=== PATIENT | male | born 1945 | race Caucasian/White ===

== ENCOUNTER → 2022-07-08 | Outpatient (REF) | payer MEDICARE | LOC: M LAB REF 13:31 | PROVIDERS: ATTEND Internal Medicine | DX: Z13.89 Encounter for screening for other disorder (principal) ==

== ENCOUNTER → 2022-12-01 | Outpatient (CLI) | payer MEDICARE | LOC: M WUC 09:34 | PROVIDERS: ATTEND Nurse Practitioner Family | DX: R05.8 Other specified cough (principal) ==

== ENCOUNTER → 2023-04-09 | Day surgery (SDC) | payer MEDICARE ==
[~2023-04-09] VITALS: Ht 170.2 cm; Wt 68.5 kg
[~2023-04-09] MED LIST: ATOR1TAB21 PO; COMPTAB7 PO; LEVO75TA4 PO; LIDOCAINE 2% 100MG/5ML SDV (FOR ANES.) As Ordered ONE; NS 1,000 ML IV ONE; OMEG10002 PO; propofoL 200 MG/20 ML VIAL As Ordered ONE
[2023-04-09 12:47] VITALS: TEMP 97.4
[2023-04-09 13:15] VITALS: BP 110/56; O2SAT 98
== END | disposition home or self-care (01) ==
LOC: M OPP 11:32
PROVIDERS: ATTEND Internal Medicine Gastroenterology
DX: K64.8 Other hemorrhoids (principal); K63.5 Polyp of colon; K21.9 Gastro-esophageal reflux disease without esophagitis; K44.9 Diaphragmatic hernia without obstruction or gangrene; K29.70 Gastritis, unspecified, without bleeding; K31.A0 Gastric intestinal metaplasia, unspecified; Z79.02 Long term (current) use of antithrombotics/antiplatelets; Z79.890 Hormone replacement therapy; Z79.891 Long term (current) use of opiate analgesic

== ENCOUNTER → 2023-07-07 | Outpatient (REF) | payer MEDICARE ==
[~2023-07-07] MED LIST changes: -LIDOCAINE 2% 100MG/5ML SDV (FOR ANES.) As Ordered ONE; -NS 1,000 ML IV ONE; -propofoL 200 MG/20 ML VIAL As Ordered ONE
[2023-07-07 15:16] LABS: PTH INTACT 69.7 PG/ML (18.5-88.0)
[2023-07-07 15:18] LABS: URIC ACID 6.6 MG/DL (3.7-9.2)
== END ==
LOC: M LAB REF 13:59
PROVIDERS: ATTEND Internal Medicine
DX: N18.31 Chronic kidney disease, stage 3a (principal)

== ENCOUNTER → 2023-08-18 | Outpatient (REF) | payer MEDICARE, OTHER | LOC: M SFHCDERM 17:45 | PROVIDERS: ATTEND Physician Assistant | DX: C44.622 Squamous cell carcinoma of skin of right upper limb, including shoulder (principal) ==

== ENCOUNTER → 2024-01-10 | Outpatient (REF) | payer MEDICARE ==
[2024-01-10 12:38] LABS: APPEARANCE, URINE CLEAR (CLEAR); BACTERIA, URINE AUTO NEGATIVE (NEGATIVE); BILIRUBIN, URINE AUTO NEGATIVE (NEGATIVE); BLOOD, URINE BLOOD NEGATIVE (NEGATIVE); COLOR, URINE YELLOW (YELLOW); GLUCOSE, URINE (UA) AUTO NEGATIVE (NEGATIVE); KETONE, URINE AUTO NEGATIVE (NEGATIVE); LEUKOCYTE ESTERASE, URINE AUTO NEGATIVE (NEGATIVE); MUCUS, URINE SMALL (NEGATIVE); NITRITE, URINE AUTO NEGATIVE (NEGATIVE); PROTEIN, URINE AUTO NEGATIVE (NEGATIVE); RBC, URINE AUTO 0 /HPF (0-3); SQUAMOUS EPITHELIAL CELL UR AU 0 /HPF (0-6); UROBILINOGEN, URINE AUTO 0.2 mg/dL (0.0-2.0); WBC, URINE AUTO 3 /HPF (0-3)
[2024-01-10 13:14] LABS: PERCENT SATURATION 27.8 % (19.7-50.0)
[2024-01-10 13:16] LABS: FERRITIN 172.6 NG/ML (10.5-307.3)
[2024-01-10 14:12] LABS: % LABILE ALKALINE PHOSPHATASE 31.1 %
[2024-01-11 05:32] LABS: T P ELECTROPHORESIS SO 6.2 g/dL (6.1-8.1)
[2024-01-11 14:43] LABS: ALBUMIN SPEP 3.3 g/dL (3.8-4.8); ALPHA-1-GLOBULINS SO 0.4 g/dL (0.2-0.3); BETA 2 GLOBULIN 0.3 g/dL (0.2-0.5); BETA-GLOBULIN SO 0.3 g/dL (0.4-0.6); GAMMA GLOBULINS SO 0.8 g/dL (0.8-1.7)
== END ==
LOC: M LAB REF 11:44
PROVIDERS: ATTEND Internal Medicine
DX: R47.01 Aphasia (principal); R30.0 Dysuria; N40.1 Benign prostatic hyperplasia with lower urinary tract symptoms; N17.9 Acute kidney failure, unspecified; D64.9 Anemia, unspecified

== ENCOUNTER → 2024-01-10 | Outpatient (CLI) | payer MEDICARE | LOC: M WHC 10:03 | PROVIDERS: ATTEND Internal Medicine | DX: N17.9 Acute kidney failure, unspecified (principal) ==

== ENCOUNTER → 2024-01-11 | Outpatient (CLI) | payer MEDICARE | LOC: M WHC 06:50 | PROVIDERS: ATTEND Internal Medicine | DX: R74.8 Abnormal levels of other serum enzymes (principal) ==

== ENCOUNTER → 2024-06-19 | Outpatient (CLI) | payer MEDICARE | LOC: M RAD 14:59 | PROVIDERS: ATTEND Urology | DX: R97.20 Elevated prostate specific antigen [PSA] (principal) ==

== ENCOUNTER → 2024-08-10 | Outpatient (CLI) | payer MEDICARE | LOC: M WUC 13:07 | PROVIDERS: ATTEND Internal Medicine | DX: G89.29 Other chronic pain (principal); M17.11 Unilateral primary osteoarthritis, right knee; M11.261 Other chondrocalcinosis, right knee; M85.811 Other specified disorders of bone density and structure, right shoulder; M19.011 Primary osteoarthritis, right shoulder ==

== ENCOUNTER → 2024-08-25 | Outpatient (CLI) | payer MEDICARE ==
[2024-08-25 18:12] LABS: ALBUMIN 3.7 G/DL (3.2-5.2); BILIRUBIN,TOTAL 0.5 MG/DL (0.3-1.2); CALCIUM LEVEL 9.5 MG/DL (8.3-10.6); CREATININE FOR GFR 2.03 MG/DL (0.70-1.30); GLOMERULAR FILTRATION RATE 33.9 (>42); POTASSIUM SERUM 4.6 MMOL/L (3.5-5.1); PROSTATIC SPECIFIC AG MONITOR 10.96 NG/ML (< 4.00); TOTAL PROTEIN 6.7 G/DL (5.7-8.2)
== END ==
LOC: M WUC 13:25
PROVIDERS: ATTEND Urology
DX: C61 Malignant neoplasm of prostate (principal)

== ENCOUNTER → 2024-09-18 | Outpatient (CLI) | payer MEDICARE ==
[2024-09-18 12:58] LABS: ALBUMIN 3.7 G/DL (3.2-5.2); BILIRUBIN,TOTAL 0.7 MG/DL (0.3-1.2); CALCIUM LEVEL 9.8 MG/DL (8.3-10.6); CREATININE FOR GFR 2.25 MG/DL (0.70-1.30); GLOMERULAR FILTRATION RATE 30.1 (>42); POTASSIUM SERUM 4.8 MMOL/L (3.5-5.1); PROSTATIC SPECIFIC AG MONITOR 2.26 NG/ML (< 4.00); TOTAL PROTEIN 6.7 G/DL (5.7-8.2)
== END ==
LOC: M WUC 10:05
PROVIDERS: ATTEND Urology
DX: C61 Malignant neoplasm of prostate (principal)

== ENCOUNTER → 2024-10-20 | Outpatient (REF) | payer MEDICARE ==
[2024-10-20 14:10] LABS: PSA SCREENING 1.5 NG/ML (< 4.00)
[2024-10-20 14:16] LABS: ALBUMIN 3.6 G/DL (3.2-5.2); BILIRUBIN,TOTAL 0.6 MG/DL (0.3-1.2); CALCIUM LEVEL 9.9 MG/DL (8.3-10.6); CREATININE FOR GFR 2.04 MG/DL (0.70-1.30); GLOMERULAR FILTRATION RATE 33.6 (>35); POTASSIUM SERUM 5.2 MMOL/L (3.5-5.1); TOTAL PROTEIN 6.7 G/DL (5.7-8.2)
== END ==
LOC: M LABWUC 13:25
PROVIDERS: ATTEND Urology
DX: C61 Malignant neoplasm of prostate (principal); Z12.5 Encounter for screening for malignant neoplasm of prostate
CPT/HCPCS: 36415; 80053; 84403; G0103

== ENCOUNTER → 2025-02-01 | Outpatient (REF) | payer MEDICARE ==
[2025-02-01 14:25] LABS: IRON (FE) 76.0 UG/DL (65-175); PERCENT SATURATION 30.9 % (19.7-50.0); PTH INTACT 54.2 PG/ML (18.5-88.0)
== END ==
LOC: M LAB REF 13:36
PROVIDERS: ATTEND Internal Medicine
DX: D64.9 Anemia, unspecified (principal); N18.4 Chronic kidney disease, stage 4 (severe)

== ENCOUNTER → 2025-02-22 | Outpatient (CLI) | payer MEDICARE ==
[2025-02-22 12:48] LABS: PROSTATIC SPECIFIC AG MONITOR 1.26 NG/ML (< 4.00)
[2025-02-22 12:50] LABS: ALT/SGPT 18 U/L (7.0-40); AST/SGOT 22 U/L (<34); CALCIUM LEVEL 9.8 MG/DL (8.3-10.6); CARBON DIOXIDE LEVEL 26 MMOL/L (20-31); CHLORIDE LEVEL 105 MMOL/L (98-107); CREATININE FOR GFR 1.87 MG/DL (0.70-1.30); GLOMERULAR FILTRATION RATE 35.9 (>35); POTASSIUM SERUM 4.7 MMOL/L (3.5-5.1); SODIUM LEVEL 144 MMOL/L (136-145)
[2025-02-22 13:08] LABS: TESTOSTERONE < 7 NG/DL (241-827)
== END ==
LOC: M WUC 09:58
PROVIDERS: ATTEND Urology
DX: C61 Malignant neoplasm of prostate (principal)

== ENCOUNTER → 2025-04-27 | Outpatient (CLI) | payer MEDICARE ==
[2025-04-27 14:04] LABS: BASO # 0.1 10^3/uL (0.0-0.2); BASO % 0.9 % (0.0-1.0); EOS # 0.4 10^3/uL (0.0-0.5); EOS % 5.0 % (0.0-3.0); LYMPH # 0.8 10^3/uL (1.5-5.0); LYMPH % 10.3 % (24.0-44.0); MONO # 0.6 10^3/uL (0.0-0.8); MONO % 7.3 % (2.0-8.0); NEUTROPHILS # 5.8 10^3/uL (1.5-8.5); NEUTROPHILS % 76.2 % (36.0-66.0); PLATELET COUNT, AUTOMATED 371 10^3/uL (150-450)
[2025-04-27 14:37] LABS: ALT/SGPT 19.0 U/L (7.0-40); AST/SGOT 23.0 U/L (<34); CALCIUM LEVEL 9.1 MG/DL (8.3-10.6); CARBON DIOXIDE LEVEL 28.0 MMOL/L (20-31); CHLORIDE LEVEL 103.0 MMOL/L (98-107); CREATININE FOR GFR 1.75 MG/DL (0.70-1.30); GLOMERULAR FILTRATION RATE 38.9 (>35); POTASSIUM SERUM 4.4 MMOL/L (3.5-5.1); SODIUM LEVEL 139.0 MMOL/L (136-145); TESTOSTERONE 9.0 NG/DL (241-827)
[2025-04-30 15:27] LABS: PSA % FREE UNABLE TO CALCULATE % (calc) (>25); PSA FREE < 0.1 ng/mL; PSA TOTAL 0.4 ng/mL (< OR = 4.0)
== END ==
LOC: M WUC 10:41
PROVIDERS: ATTEND Urology
DX: C61 Malignant neoplasm of prostate (principal)

== ENCOUNTER → 2025-06-11 | Outpatient (CLI) | payer MEDICARE ==
[2025-06-11 16:53] LABS: PROSTATIC SPECIFIC AG MONITOR 0.30 NG/ML (< 4.00)
[2025-06-11 16:59] LABS: TESTOSTERONE < 7 NG/DL (241-827)
== END ==
LOC: M WUC 12:34
PROVIDERS: ATTEND Radiology Radiation Oncology
DX: C61 Malignant neoplasm of prostate (principal)